=== PATIENT | female | born 1965 | race Caucasian/White ===

== ENCOUNTER 2016-12-29 06:39 | Day surgery (SDC) | payer OTHER ==
[2016-12-28 14:46] VITALS: BMI 30.2
[~2016-12-29] VITALS: Ht 160 cm; Wt 73.0 kg
[2016-12-29] VITALS (13 sets, daily range): BP systolic 105–166; BP diastolic 49–74; PULSE 59–85; RESP 13–18; Ht 160 cm; Wt 73.0 kg
[2016-12-29] MEDS ORDERED: SOD CHLORIDE 0.9% 1,000 ML IV SCH (08:30)
[2016-12-29] MEDS ORDERED: CEFAZOLIN 2 GM/50 ML (PMX) 50 ML IVPB ONE (08:30)
[2016-12-29 10:19] LABS: ADD SCAN DIFF NO
[2016-12-29 10:22] LABS: BASOPHILS % 0.3 % (0.0-2.0); EOSINOPHILS % 0.3 % (0.0-7.0); HEMATOCRIT 37.5 % (37.0-47.0); HEMOGLOBIN 12.9 g/dl (12.0-16.0); LYMPHOCYTES # 1.6 10^3/ul (0.8-2.9); LYMPHOCYTES % 28.2 % (15.0-51.0); MEAN CORPUSCULAR HEMOGLOBIN 29.5 pg (29.0-33.0); MEAN CORPUSCULAR HGB CONC 34.4 g/dl (32.0-37.0); MEAN CORPUSCULAR VOLUME 85.6 fl (82.0-101.0); MEAN PLATELET VOLUME 11.8 fl (7.4-10.4); MONOCYTE # 0.3 10^3/ul (0.3-0.9); MONOCYTES % 5.8 % (0.0-11.0); NEUTROPHIL # 3.8 10^3/ul (1.6-7.5); NEUTROPHILS % 65.2 % (39.0-77.0); PLATELET COUNT 169 10^3/UL (140-415); RED BLOOD COUNT 4.38 10^6/ul (4.20-5.40); RED CELL DISTRIBUTION WIDTH 12.7 % (11.5-14.5); WHITE BLOOD COUNT 5.8 10^3/ul (4.8-10.8)
[2016-12-29 10:35] LABS: PROTIME 13.2 Sec (12.2-14.2)
--- NOTE | 2016-12-29 10:35 | RADRPT ---
PROCEDURE: XR Chest. CLINICAL INDICATION: Preoperative for left breast biopsy. TECHNIQUE: Single frontal view. COMPARISON: None. FINDINGS: The lungs are clear. The heart size is normal. There is no pleural effusion or pneumothorax. A guide wire is present in the left breast laterally. IMPRESSION: 1. Guide wire in the left breast laterally. 2. Otherwise normal chest radiograph. RPTAT: QQ .Braydon Craig MD, MD Date Time Electronically viewed and signed by .Braydon Craig MD, MD on 12/29/2016 10:35 .R/
[2016-12-29 10:36] LABS: PARTIAL THROMBOPLASTIN TIME 27.4 Sec (25.0-35.0)
[2016-12-29 10:39] LABS: CREATININE 0.65 mg/dl (0.44-1.00)
[2016-12-29 10:40] LABS: CALCIUM 9.8 mg/dl (8.4-10.2)
[2016-12-29] MEDS ORDERED: PROPOFOL 20 ML ONE (11:04)
[2016-12-29] MEDS ORDERED: MIDAZOLAM 1 MG/ML 2 ML INJ ONE (11:05)
[2016-12-29] MEDS ORDERED: METOCLOPRAMIDE 10 MG INJ ONE (11:05)
[2016-12-29] MEDS ORDERED: FENTAnyl 50 MCG/ML VIAL ONE (11:05)
[2016-12-29] MEDS ORDERED: CEFAZOLIN 1 GM INJ ONE (11:17)
[2016-12-29] MEDS ORDERED: METOCLOPRAMIDE 10 MG INJ IV PRN (12:00)
[2016-12-29] MEDS ORDERED: OXYCODONE/ACETAMINOPHEN (5/325) TAB PO PRN ×2 (12:00)
[2016-12-29] MEDS ORDERED: DIPHENHYDRAMINE 50 MG INJ IV PRN (12:00)
[2016-12-29] MEDS ORDERED: MEPERIDINE 25 MG INJ IV PRN (12:00)
[2016-12-29] MEDS ORDERED: HYDROmorphONE (0.2 MG/ML) 10ML SYG IV PRN ×3 (12:00)
[2016-12-29] MEDS ORDERED: ONDANSETRON 4 MG INJ IV PRN (12:00)
[2016-12-29] MEDS ORDERED: EPHEDrine SULFATE 50 MG/5 ML SYG ONE (12:32)
--- NOTE | 2016-12-29 12:52 | OPR ---
DATE OF OPERATION: 12/29/2016 PREOPERATIVE DIAGNOSIS: Ductal carcinoma in situ, left breast. POSTOPERATIVE DIAGNOSIS: Ductal carcinoma in situ, left breast. OPERATION PERFORMED: Needle-directed left partial mastectomy. ANESTHESIA: General. ANESTHESIOLOGIST: Dr. Teresa SURGEON: Michael Reza MD TRADE RECRUITER: Bridger Venegas MD INDICATIONS FOR PROCEDURE: The patient is a 51-year-old female who presented with a suspicious lesi on in her left breast. A stereotactic biopsy was performed and it was nondiagnostic. The radiologi st recommended needle-directed excisional biopsy. The patient was counseled as to the risks versus benefits. She consented and was scheduled for surgery. DESCRIPTION OF PROCEDURE: On the day of surgery the patient was brought to [facility], where she underwent localization of the lesion performed by attending radiologist, Dr. Jenny Craig. Subsequently, she was brought to the operating theater and placed under gener al anesthesia. The left breast was prepped and draped in the usual sterile fashion. The localizati on needle was in the upper outer quadrant of the left breast. A curvilinear incision was made in th e region of the needle. The subcutaneous tissue was dissected with cautery. The skin edges were the n elevated with skin hooks. Wide circumferential dissection of the tissue associated with the wire took place, taking great care to ensure an adequate margin. The specimen was elevated, transected, oriented, and sent for radiographic confirmation of capture. Capture was confirmed. The specimen w as then sent for permanent pathologic analysis. The wound was irrigated. Minimal bleeding was cont rolled with cautery. The skin was then reapproximated with a 4-0 Vicryl suture in subcuticular fash ion, and benzoin and Steri-Strips were applied. The patient tolerated the procedure well. The manny mated blood loss was 10 mL. There were no complications. The patient was transported in stable con dition to the recovery room. Dictated By: MICHAEL REZA MD TL/NTS Conf#: [id number] DID#: [id number]
[2016-12-29] MEDS ORDERED: HYDROCODONE/APAP (7.5/325) TAB PO PRN (13:00)
== END 2016-12-29 15:00 | disposition home or self-care (01) ==
LOC: SDS 06:39
PROVIDERS: ATTEND Surgery Surgical Oncology
DX: D05.12 Intraductal carcinoma in situ of left breast (principal); I10 Essential (primary) hypertension
CPT/HCPCS: 19301; 71010; 80048; 84703; 85025; 85610; 85730; 93005; J0690; J2250; J2765; J3010; Z7512; Z7610

== ENCOUNTER 2017-01-20 10:41 | Day surgery (SDC) | payer OTHER ==
[2017-01-19 14:46] VITALS: BMI 28.2
[~2017-01-20] VITALS: Ht 162.6 cm; Wt 70.6 kg
[2017-01-20] VITALS (13 sets, daily range): BP systolic 110–178; BP diastolic 56–76; PULSE 56–85; RESP 9–20; Ht 162.6 cm; Wt 70.6 kg
[~2017-01-20 10:41] MED LIST: CEFAZOLIN 1 GM INJ ONE; CEFAZOLIN 2 GM/50 ML (PMX) 50 ML IVPB SCH; GLYCOPYRROLATE 0.4 MG INJ ONE; SOD CHLORIDE 0.9% 1,000 ML IV SCH
[2017-01-20] MEDS ORDERED: HYDROCODONE/APAP (7.5/325) TAB PO PRN (13:30)
[2017-01-20 13:40] LABS: ADD SCAN DIFF NO
[2017-01-20 13:44] LABS: BASOPHILS % 0.2 % (0.0-2.0); EOSINOPHILS % 0.5 % (0.0-7.0); HEMATOCRIT 37.3 % (37.0-47.0); HEMOGLOBIN 12.6 g/dl (12.0-16.0); LYMPHOCYTES # 1.8 10^3/ul (0.8-2.9); LYMPHOCYTES % 28.7 % (15.0-51.0); MEAN CORPUSCULAR HGB CONC 33.8 g/dl (32.0-37.0); MEAN CORPUSCULAR VOLUME 85.9 fl (82.0-101.0); MEAN PLATELET VOLUME 11.8 fl (7.4-10.4); MONOCYTE # 0.3 10^3/ul (0.3-0.9); MONOCYTES % 5.3 % (0.0-11.0); NEUTROPHIL # 4.1 10^3/ul (1.6-7.5); PLATELET COUNT 166 10^3/UL (140-415); RED BLOOD COUNT 4.34 10^6/ul (4.20-5.40); RED CELL DISTRIBUTION WIDTH 12.4 % (11.5-14.5); WHITE BLOOD COUNT 6.3 10^3/ul (4.8-10.8)
[2017-01-20 13:52] LABS: POTASSIUM 3.6 mmol/L (3.5-5.1)
[2017-01-20 13:53] LABS: PROTIME 13.2 Sec (12.2-14.2)
[2017-01-20 13:55] LABS: CALCIUM 9.8 mg/dl (8.4-10.2); CREATININE 0.75 mg/dl (0.44-1.00)
[2017-01-20] MEDS ORDERED: LIDOCAINE 2% (SDV) 5 ML INJ ONE (14:12)
[2017-01-20] MEDS ORDERED: PROPOFOL 20 ML ONE (14:12)
[2017-01-20] MEDS ORDERED: ONDANSETRON 4 MG INJ ONE (14:13)
[2017-01-20] MEDS ORDERED: MIDAZOLAM 1 MG/ML 2 ML INJ ONE (14:13)
[2017-01-20] MEDS ORDERED: DEXAMETHASONE 4 MG/ML 1 ML INJ ONE (14:13)
[2017-01-20] MEDS ORDERED: ISOSULFAN BLUE 1% 5 ML INJ SC ONE (15:06)
[2017-01-20] MEDS ORDERED: LISI10TA2 PO (15:28)
[2017-01-20] MEDS: morphine (1 MG/ML) 10ML SYRINGE IV PRN ×2 (16:42→16:59)
--- NOTE | 2017-01-20 16:48 | OPR ---
DATE OF OPERATION: 01/20/2017 PREOPERATIVE DIAGNOSIS: Microinvasive cancer with extensive DCIS left breast and positive margins, need for reexcision partial mastectomy and sentinel lymph node biopsy. POSTOPERATIVE DIAGNOSIS: Microinvasive cancer with extensive DCIS left breast and positive margins, need for reexcision partial mastectomy and sentinel lymph node biopsy. OPERATION PERFORMED: Left reexcision partial mastectomy and sentinel lymph node biopsy. ANESTHESIA: General. ANESTHESIOLOGIST: EDITA Self SURGEON: Michael Reza MD QUALITY CONTROLLER: Dr. Valencia INDICATIONS FOR PROCEDURE: The patient is a 51-year-old female who underwent surveillance mammograp hy. She was found to have a very suspicious lesion in her left breast. Core biopsy revealed DCIS. She underwent complete excisional biopsy. The final pass revealed extensive DCIS with 2 areas of m icroinvasion, and the medial margin was involved in the DCIS. The patient was counseled as to the n eed for reexcision partial mastectomy and sentinel lymph node biopsy. She consented and was schedul ed for surgery. DESCRIPTION OF PROCEDURE: The patient was brought to the operating theater, placed under general an esthesia. The left breast and axillary regions were prepped and draped in usual sterile fashion. A pproximately 4 mL of 1% blue dye was then injected peritumorally. The breast was gently massaged fo r approximately 12 minutes. At that point, a 2 to 3 cm incision was made in the left axillary hairl ine. Subcutaneous tissue was dissected with cautery down through the clavipectoral fascia. A dye-s tained lymphatic was identified. It was traced towards a sentinel node. This node was elevated and resected using a LigaSure device and sent for intraoperative analysis which was negative for obviou s metastatic disease. Therefore, no further nodes were taken. The wound was irrigated, and minimal bleeding was controlled with cautery. The skin was then reapproximated with 4-0 Vicryl suture in s ubcuticular fashion. Attention was then directed to performing the reexcision partial mastectomy. Previous surgical inci natalia in the upper outer quadrant was reincised with 15 blade scalpel. Subcutaneous tissue was disse cted with cautery. The biopsy cavity was entered, and the skin edges were elevated with skin hooks. One hundred eighty degree resection of the anterior and medial margin then took place with cautery . Specimen was elevated, transected, oriented, and sent for permanent pathologic analysis. The wou nd was irrigated. Minimal bleeding was controlled with cautery. The skin was then reapproximated w ith 4-0 Vicryl suture in subcuticular fashion, and benzoin and Dermabond was applied to both incisio ns. The patient tolerated the procedure well. The estimated blood loss was 20 mL. There were no c omplications, and the patient was transported in stable condition to the recovery room where circumf erential compression dressing was applied. Dictated By: MICHAEL FORRESTER/NOEMY Conf#: [id number] DID#: [id number]
[2017-01-20] MEDS ORDERED: OXYCODONE/ACETAMINOPHEN (5/325) TAB PO PRN ×2 (17:00)
[2017-01-20] MEDS ORDERED: EPHEDrine SULFATE 50 MG/5 ML SYG IV PRN (17:00)
[2017-01-20] MEDS ORDERED: ONDANSETRON 4 MG INJ IV PRN (17:00)
[2017-01-20] MEDS ORDERED: METOCLOPRAMIDE 10 MG INJ IV PRN (17:00)
[2017-01-20] MEDS ORDERED: hydrALAzine 20 MG INJ IV PRN (17:00)
[2017-01-20] MEDS ORDERED: DIPHENHYDRAMINE 50 MG INJ IV PRN (17:00)
[2017-01-20] MEDS ORDERED: morphine (1 MG/ML) 10ML SYRINGE IV PRN ×2 (17:00)
[2017-01-20] MEDS ORDERED: MEPERIDINE 25 MG INJ IV PRN (17:00)
[2017-01-20] MEDS ORDERED: OXYCODONE/ACETAMINOPHEN (5/325) TAB PO ONE (18:00)
== END 2017-01-20 18:40 | disposition home or self-care (01) ==
LOC: SDS 10:41
PROVIDERS: ATTEND Surgery Surgical Oncology
DX: D05.12 Intraductal carcinoma in situ of left breast (principal); I10 Essential (primary) hypertension
CPT/HCPCS: 19301; 38500; 38792; 80048; 85025; 85610; 85730; 88307; 88331; J0690; J1100; J2250; J2270; J2405; J3010; Z7512; Z7610; 88342; Q9968

== ENCOUNTER 2017-02-17 08:42 | Day surgery (SDC) | payer OTHER ==
[2017-02-17] VITALS (8 sets, daily range): BP systolic 136–152; BP diastolic 53–66; PULSE 38–60; RESP 10–18
[~2017-02-17 08:42] MED LIST changes: -CEFAZOLIN 1 GM INJ ONE; -CEFAZOLIN 2 GM/50 ML (PMX) 50 ML IVPB SCH; -GLYCOPYRROLATE 0.4 MG INJ ONE; +LIDOCAINE 2% (SDV) 5 ML INJ ONE; +LISI10TA2 PO; -SOD CHLORIDE 0.9% 1,000 ML IV SCH
[2017-02-17] MEDS ORDERED: CEFAZOLIN 2 GM/50 ML (PMX) 50 ML IVPB ONE (10:00)
[2017-02-17] MEDS ORDERED: SOD CHLORIDE 0.9% 1,000 ML IV SCH (10:00)
[2017-02-17 10:20] LABS: ADD SCAN DIFF NO
[2017-02-17 10:22] LABS: BASOPHILS % 0.4 % (0.0-2.0); EOSINOPHILS # 0.1 10^3/ul (0.0-0.5); EOSINOPHILS % 1.1 % (0.0-7.0); HEMOGLOBIN 12.2 g/dl (12.0-16.0); LYMPHOCYTES # 1.8 10^3/ul (0.8-2.9); LYMPHOCYTES % 39.7 % (15.0-51.0); MEAN CORPUSCULAR HEMOGLOBIN 29.3 pg (29.0-33.0); MEAN CORPUSCULAR HGB CONC 33.9 g/dl (32.0-37.0); MEAN CORPUSCULAR VOLUME 86.3 fl (82.0-101.0); MONOCYTE # 0.4 10^3/ul (0.3-0.9); MONOCYTES % 7.6 % (0.0-11.0); NEUTROPHIL # 2.3 10^3/ul (1.6-7.5); PLATELET COUNT 172 10^3/UL (140-415); RED BLOOD COUNT 4.17 10^6/ul (4.20-5.40); RED CELL DISTRIBUTION WIDTH 12.9 % (11.5-14.5); WHITE BLOOD COUNT 4.6 10^3/ul (4.8-10.8)
[2017-02-17 10:38] LABS: ALBUMIN 4.4 g/dl (3.3-4.9)
[2017-02-17 10:41] LABS: ALBUMIN/GLOBULIN RATIO 1.33; BILIRUBIN,INDIRECT 0.5 mg/dl (0-1.1); BILIRUBIN,TOTAL 0.5 mg/dl (0.2-1.3); TOTAL PROTEIN 7.7 g/dl (6.1-8.1)
--- NOTE | 2017-02-17 10:43 | RADRPT ---
PROCEDURE: XR Chest. CLINICAL INDICATION: preop, breast ca TECHNIQUE: Single frontal view of the chest was obtained COMPARISON: None FINDINGS: The heart and mediastinum are within normal limits. There is a small right upper lobe calcified granuloma. The lungs are otherwise clear. There is no pleural effusion or pneumothorax. RPTAT: AA IMPRESSION: No acute disease. .Warren Claudio MD, MD Date Time Electronically viewed and signed by .Warren Claudio MD, on 02/17/2017 10:43 .S/
[2017-02-17 10:44] LABS: CALCIUM 9.4 mg/dl (8.4-10.2); CREATININE 0.7 mg/dl (0.44-1.00); POTASSIUM 3.8 mmol/L (3.5-5.1)
[2017-02-17 11:06] LABS: INR 0.99; PROTIME 13.1 Sec (12.2-14.2)
[2017-02-17 11:07] LABS: PARTIAL THROMBOPLASTIN TIME 32.6 Sec (25.0-35.0)
[2017-02-17] MEDS ORDERED: HYDROCODONE/APAP (7.5/325) TAB PO PRN (11:30)
[2017-02-17] MEDS ORDERED: PROPOFOL 20 ML ONE (12:16)
[2017-02-17] MEDS ORDERED: MIDAZOLAM 1 MG/ML 2 ML INJ ONE (12:16)
[2017-02-17] MEDS ORDERED: FENTAnyl 50 MCG/ML VIAL ONE (12:16)
[2017-02-17] MEDS ORDERED: DEXAMETHASONE 4 MG/ML 1 ML INJ ONE (12:31)
[2017-02-17] MEDS ORDERED: CEFAZOLIN 1 GM INJ ONE (12:31)
[2017-02-17] MEDS ORDERED: ONDANSETRON 4 MG INJ ONE (12:31)
[2017-02-17] MEDS ORDERED: FAMOTIDINE 20 MG INJ ONE (12:31)
[2017-02-17] MEDS ORDERED: ACETAMINOPHEN 1000MG/100ML IV 100 ML ONE (12:39)
[2017-02-17] MEDS ORDERED: DIPHENHYDRAMINE 50 MG INJ IV PRN (13:30)
[2017-02-17] MEDS ORDERED: MEPERIDINE 25 MG INJ IV PRN (13:30)
[2017-02-17] MEDS ORDERED: hydrALAzine 20 MG INJ IV PRN (13:30)
[2017-02-17] MEDS ORDERED: HYDROmorphONE (0.2 MG/ML) 10ML SYG IV PRN ×2 (13:30)
--- NOTE | 2017-02-17 14:04 | OPR ---
DATE OF OPERATION: 02/17/2017 PREOPERATIVE DIAGNOSIS: Left breast cancer, need for reexcision left partial mastectomy. POSTOPERATIVE DIAGNOSIS: Left breast cancer, need for reexcision left partial mastectomy. PROCEDURE: Left reexcision partial mastectomy. ANESTHESIA: General. ANESTHESIOLOGIST: Dr. Edwards SURGEON: Michael Reza MD TYPECASTING MACHINE OPERATOR: Dr. Valencia. INDICATIONS FOR PROCEDURE: The patient is a 51-year-old female who was previously treated for a lef t breast cancer. She had inadequate margin medially for ductal carcinoma in situ. She was counsele d as to the need for reexcision partial mastectomy. She consented and was scheduled for surgery. DESCRIPTION OF PROCEDURE: The patient was brought to the operating theater, placed under general an esthesia. The left breast was prepped and draped in the usual sterile fashion. The previous surgic al incision was in the upper outer quadrant and scar was reincised. Subcutaneous tissue was dissect ed with cautery. This seroma cavity was entered. Several milliliters of straw-colored seroma fluid were suction evacuated. Skin hooks were used to elevate the skin and 180 degree circumferential re section of the medial portion of the biopsy cavity then took place using cautery. Specimen was suero sected, oriented, and sent for permanent pathologic analysis. The wound was irrigated. Minimal ble eding was controlled with cautery. The skin was then reapproximated with a deep dermal layer of 4-0 Vicryl sutures in interrupted fashion, followed by final skin approximation with 5-0 PDS sutures in subcuticular fashion. Benzoin and Steri-Strips were then applied. The patient tolerated procedure well. Estimated blood loss was 10 mL. There were no complications and the patient was transported in stable condition to the recovery room. Dictated By: MICHAEL FORRESTER/NOEMY Conf#: [id number] DID#: [id number]
--- NOTE | 2017-02-17 16:42 | RADRPT ---
Vent Rate: 50 bpm RR Interval: 0 msec MD Interval: 128 msec QRS Duration: 90 msec QT Interval: 464 msec QTC Interval: 423 msec P-R-T [place]: 23 - 73 - 51 degrees Sinus bradycardia Otherwise normal ECG Electronically Signed By: Evens Eisenberg [id number]
== END 2017-02-17 15:04 | disposition home or self-care (01) ==
LOC: SDS 08:42
PROVIDERS: ATTEND Surgery Surgical Oncology
DX: C50.912 Malignant neoplasm of unspecified site of left female breast (principal); I10 Essential (primary) hypertension
CPT/HCPCS: 19301; 71010; 80053; 85025; 85610; 85730; 88307; 93005; J0690; J1100; J2250; J2405; J3010; Z7512; Z7610; J0131

== ENCOUNTER 2017-05-08 06:42 | Day surgery (SDC) | payer OTHER ==
[~2017-05-08] VITALS: Ht 157.5 cm; Wt 69.0 kg
[2017-05-08] VITALS (15 sets, daily range): BP systolic 104–135; BP diastolic 51–65; PULSE 44–72; RESP 15–30; Ht 157.5 cm; Wt 69.0 kg
[~2017-05-08 06:42] MED LIST changes: -LIDOCAINE 2% (SDV) 5 ML INJ ONE
[2017-05-08] MEDS ORDERED: CEFAZOLIN 1 GM INJ ONE (07:00)
[2017-05-08] MEDS ORDERED: DEXAMETHASONE 4 MG/ML 1 ML INJ ONE (07:00)
[2017-05-08] MEDS ORDERED: ONDANSETRON 4 MG INJ ONE (07:00)
[2017-05-08] MEDS ORDERED: SOD CHLORIDE 0.9% 1,000 ML IV SCH (08:00)
[2017-05-08] MEDS ORDERED: CEFAZOLIN 2 GM/50 ML (PMX) 50 ML IVPB SCH (08:00)
[2017-05-08] MEDS ORDERED: DIPHENHYDRAMINE 50 MG INJ IV PRN (09:00)
[2017-05-08] MEDS ORDERED: ONDANSETRON 4 MG INJ IV PRN (09:00)
[2017-05-08] MEDS ORDERED: OXYCODONE/ACETAMINOPHEN (5/325) TAB PO PRN ×2 (09:00)
[2017-05-08] MEDS ORDERED: MEPERIDINE 25 MG INJ IV PRN (09:00)
[2017-05-08] MEDS ORDERED: HYDROmorphONE (0.2 MG/ML) 10ML SYG IV PRN ×3 (09:00)
[2017-05-08] MEDS ORDERED: hydrALAzine 20 MG INJ IV PRN (09:00)
[2017-05-08] MEDS ORDERED: EPHEDrine SULFATE 50 MG/5 ML SYG IV PRN (09:00)
[2017-05-08] MEDS ORDERED: FENTAnyl 50 MCG/ML VIAL IV PRN ×3 (09:00)
[2017-05-08] MEDS ORDERED: LABETALOL HCL 20MG INJ IV PRN (09:00)
[2017-05-08] MEDS ORDERED: PROPOFOL 100 ML ONE (09:31)
[2017-05-08] MEDS ORDERED: ROCURONIUM 50 MG INJ ONE (09:32)
[2017-05-08] MEDS ORDERED: LIDOCAINE 2% (SDV) 5 ML INJ ONE (09:33)
--- NOTE | 2017-05-08 11:32 | OPR ---
DATE OF OPERATION: 05/08/2017 PREOPERATIVE DIAGNOSIS: Ductal carcinoma in situ, left breast. Need for left re-excision partial mastectomy. POSTOPERATIVE DIAGNOSIS: Ductal carcinoma in situ, left breast. Need for left re-excision partial mastectomy. OPERATION PERFORMED: Left re-excision partial mastectomy. ANESTHESIA: General. ANESTHESIOLOGIST: Dr. Obregon. SURGEON: Dr. Reza. MANAGER PAYMENT: None. INDICATIONS FOR PROCEDURE: Patient is a 51-year-old female, who underwent surveillance mammography and was found to have suspicious microcalcifications. Biopsy revealed DCIS. She subsequently had an open excisional biopsy which revealed DCIS with positive medial margin. She was counseled as to the need for re-excision partial mastectomy. She consented and was scheduled for surgery. OPERATIVE PROCEDURE: The patient was brought to the operating theater, placed under general anesthesia. The left breast was prepped and draped in the usual sterile fashion. Previous surgical incisional scar was reincised with a 15 blade scalpel. Subcutaneous tissue was dissected with cautery. The seroma cavity was entered. Several mL of straw-colored, seroma fluid were evacuated with suction. The skin hooks were utilized to elevate the skin edges and 180-degree resection of the medial margin with portions of the superior and inferior margin then took place. The specimen was removed, oriented, and sent for permanent pathologic analysis. The wound was irrigated. Minimal bleeding was controlled with cautery. The skin was then reapproximated with 4-0 Vicryl suture in subcuticular fashion. Benzoin and Steri-Strips were then applied. Patient tolerated procedure well. ESTIMATED BLOOD LOSS: Was 10 cc. COMPLICATIONS: There were no complications. DISPOSITION: The patient was transported in stable condition to the recovery room. Dictated By: Michael Reza MD /earl/jessica /Document#: [id number]
== END 2017-05-08 12:20 | disposition home or self-care (01) ==
LOC: SDS 06:42
PROVIDERS: ATTEND Surgery Surgical Oncology
DX: D05.12 Intraductal carcinoma in situ of left breast (principal); I10 Essential (primary) hypertension
CPT/HCPCS: 19301; 84703; 88307; J0690; J1100; J2405; J3010; Z7512; Z7610

== ENCOUNTER 2017-07-20 16:00 | Inpatient (IN) | payer OTHER ==
[~2017-07-20] VITALS: Ht 157.5 cm; Wt 67.6 kg
[2017-08-25] VITALS (19 sets, daily range): BP systolic 110–141; BP diastolic 56–69; PULSE 52–90; RESP 12–19; Ht 157.5 cm; Wt 67.6 kg
[2017-08-25] MEDS ORDERED: EPHEDrine SULFATE 50 MG/5 ML SYG ONE (07:00)
[2017-08-25] MEDS ORDERED: CEFAZOLIN 2 GM/50 ML (PMX) 50 ML IVPB ONE (12:30)
[2017-08-25] MEDS ORDERED: SOD CHLORIDE 0.9% 1,000 ML IV SCH (12:30)
[2017-08-25] MEDS ORDERED: PROCHLORPERAZINE 10 MG INJ IV PRN (13:30)
[2017-08-25] MEDS ORDERED: FENTAnyl 50 MCG/ML VIAL IV PRN (13:30)
[2017-08-25] MEDS ORDERED: MEPERIDINE 25 MG INJ IV PRN (13:30)
[2017-08-25] MEDS ORDERED: LABETALOL HCL 20MG INJ IV PRN (13:30)
[2017-08-25] MEDS ORDERED: hydrALAzine 20 MG INJ IV PRN (13:30)
[2017-08-25] MEDS ORDERED: HYDROmorphONE (0.2 MG/ML) 10ML SYG IV PRN (13:30)
[2017-08-25] MEDS ORDERED: DIPHENHYDRAMINE 50 MG INJ IV PRN (13:30)
[2017-08-25] MEDS ORDERED: ONDANSETRON 4 MG INJ IV PRN ×2 (13:30→15:30)
[2017-08-25] MEDS ORDERED: OXYCODONE/ACETAMINOPHEN (5/325) TAB PO PRN (13:30)
[2017-08-25] MEDS ORDERED: LIDOCAINE 2% (SDV) 5 ML INJ ONE ×2 (13:52→13:54)
[2017-08-25] MEDS ORDERED: MIDAZOLAM 1 MG/ML 2 ML INJ ONE (13:52)
[2017-08-25] MEDS ORDERED: PROPOFOL 20 ML ONE (13:54)
[2017-08-25] MEDS ORDERED: FENTAnyl 50 MCG/ML VIAL ONE (14:14)
[2017-08-25] MEDS ORDERED: DEXAMETHASONE 4 MG/ML 1 ML INJ ONE (14:22)
[2017-08-25] MEDS ORDERED: METOCLOPRAMIDE 10 MG INJ ONE (14:22)
[2017-08-25] MEDS ORDERED: ONDANSETRON 4 MG INJ ONE (14:22)
[2017-08-25] MEDS ORDERED: CEFAZOLIN 1 GM INJ ONE (14:22)
[2017-08-25] MEDS ORDERED: FAMOTIDINE 20 MG INJ ONE (14:22)
[2017-08-25] MEDS ORDERED: HYDROmorphONE 2 MG/ML SYG ONE (14:51)
[2017-08-25] MEDS ORDERED: PHENYLephrine (100 MCG/ML) 5ML SYG ONE (14:56)
--- NOTE | 2017-08-25 15:24 | SIPON ---
Date/Time of Note Date/Time of Note DATE: 08/25/17 TIME: 15:23 Operative Report Preoperative Diagnosis Invasive cancer left breast need for left mastectomy Postoperative Diagnosis Same Operation/Procedure Performed Left mastectomy Surgeon see signature line optometry assistant Dr Venegas Anesthesia: general Estimated blood loss: 10 - 50 ml's Transfusion Required none Specimen Left breast Grafts/Implants none Complications none CANDACE CARRILLO MD Aug 25, 2017 15:24
[2017-08-25] MEDS ORDERED: morphine 2 MG INJ IV PRN (15:30)
[2017-08-25] MEDS: ACETAMINOPHEN 1000MG/100ML IV 100 ML IVPB PRN (16:05)
[2017-08-25] MEDS: D5W-0.45 NACL + KCL 20 MEQ 1,000 ML IV SCH ×2 (18:37→23:30)
--- NOTE | 2017-08-25 19:16 | OPR ---
DATE OF OPERATION: 08/25/2017 PREOPERATIVE DIAGNOSIS: History of left breast cancer with inadequate margins after multiple reexci sions, need for left mastectomy. POSTOPERATIVE DIAGNOSIS: History of left breast cancer with inadequate margins after multiple reexc isions, need for left mastectomy. PROCEDURE: Left mastectomy. ANESTHESIA: General. ANESTHESIOLOGIST: Dr. Gonzalez. SURGEON: Michael Reza MD ASSISTANTS: Dr. Bridger Wilks and ____ INDICATIONS FOR PROCEDURE: The patient is an unfortunate 52-year-old female previously treated for invasive cancer of her left breast. She had multiple reexcisions and continued to demonstrate inade quate margins. She was counseled as to need for mastectomy. She consented and was scheduled for [facility]. DESCRIPTION OF PROCEDURE: The patient was brought to the operating theater, placed under general an esthesia. The left breast and axillary region were prepped and draped in usual sterile fashion. An elliptical incision was made around the nipple areolar complex including the previous surgical inci sional scar with 15 blade scalpel. Subcutaneous tissue was dissected with cautery. The skin edges were then elevated with [facility] clamps and skin flaps were created using cautery in sequential f ashion, first to the clavicle superiorly, then to the sternal border medially, then to the inframamm kyler fold inferiorly and laterally until the latissimus dorsi muscle was identified throughout its co urse. Mastectomy then took place from medial to lateral using cautery. At the border of the pector sonia major muscle, the pectoralis minor muscle was identified and the residual axillary tail of Jim anton was resected. Specimen was removed, oriented and sent for permanent pathologic analysis. The wo und was irrigated. Minimal bleeding was controlled with cautery. Two #10 flat Phoenix-Moctezuma drains were then brought through the left mid axillary line; one was cut to size and laid within the axill a, the other was cut to size and laid over the pectoralis major muscle. Both drains were secured in place with 2-0 nylon sutures in standard fashion. The skin was then reapproximated with a deep cindy mal layer of 4-0 Vicryl sutures in interrupted fashion, followed by final skin approximation with 5- 0 PDS in subcuticular fashion. Benzoin and Steri-Strips were then applied. Patient tolerated proce dure well. The estimated blood loss was approximately 50 mL. There were no complications, and the patient was transported in stable condition to the recovery room where circumferential compression d ressing was applied. Dictated By: MICHAEL REZA MD TL/NTS Conf#: [id number] DID#: [id number] CC: BRIDGER WILKS MD;*EndCC*
--- NOTE | 2017-08-26 02:14 | HP ---
DATE OF ADMISSION: 08/25/2017 CHIEF COMPLAINT AND HISTORY OF PRESENT ILLNESS: The patient is a 52-year-old female with a known h istory of left-sided breast cancer. The patient was apparently doing well and underwent screening m ammography and was found to have suspicious microcalcifications. The patient subsequently underwent biopsy which revealed ductal carcinoma in situ. The patient was brought into the hospital back in April 2017 and underwent open excisional biopsy which revealed DCIS with positive middle margin. The patient was sent home and was admitted today for a left mastectomy. Patient postoperatively has si gnificant chest wall pain and slight nausea, and patient is being admitted for further evaluation an d management. No reported shortness of breath, no fever or chills. The patient did not have any co ugh. No history of abdominal pain, no history of vomiting or diarrhea. No history of leg weakness or leg edema. No history of any acute joint pain. No recent skin rash. Other than the postoperati ve pain and mild nausea, the review of systems are unremarkable. PAST SURGICAL HISTORY: As stated above. ALLERGIES: NONE. SOCIAL HISTORY: No smoking, no alcohol. FAMILY HISTORY: Noncontributory. MEDICATIONS: Prior to admission, the patient apparently used to take lisinopril for hypertension. PHYSICAL EXAMINATION: GENERAL: The patient is conscious, awake, alert. VITAL SIGNS: Temperature 97.5, pulse 56, respirations 18, blood pressure 115/62, O2 saturation 100% on 2 liters nasal cannula. HEENT: Conjunctivae and lids normal. Oropharynx clear. NECK: Supple. No mass, no thyromegaly. CHEST: Fairly clear. CARDIOVASCULAR: S1, S2 normal. No murmur. ABDOMEN: Soft, nontender. Bowel sounds plus, no organomegaly. EXTREMITIES: No edema. Pedal pulses palpable. SKIN: Without rash. NEUROLOGIC: The patient is awake, alert, follows simple commands and moves all extremities. LABORATORY DATA: WBC 4.6, hemoglobin 12.2, platelets 172. Recent chemistry: Sodium 145, potassium 3.8, BUN 10, creatinine 0.7. Liver enzymes normal. IMPRESSION: 1. Left breast cancer status post mastectomy. 2. History of hypertension. PLAN: The patient is admitted on medical floor. Patient will be started on clear liquid diet which will be advanced as tolerated. The patient will continue IV Tylenol, Percocet and IV morphine for pain control, depending upon severity. Will use SCDs for DVT prophylaxis. Patient's blood pressure is controlled. Most of the readings have been below 120 postoperatively. We will hold off on anahi nopril and watch her. Will continue to follow from a medical standpoint. Dictated By: TORRES CONRAD MD AB/NTS Conf#: [id number] DID#: [id number] CC: CANDACE CARRILLO MD;*End*
[2017-08-26 02:15] VITALS: BP 96/55; RESP 18
[2017-08-26] MEDS: D5W-0.45 NACL + KCL 20 MEQ 1,000 ML IV SCH ×2 (03:01→11:03)
[2017-08-26 05:30] VITALS: BP 110/56; PULSE 62; RESP 18
[2017-08-26 07:50] VITALS: BP 109/58; RESP 18
--- NOTE | 2017-08-26 08:49 | PN ---
Date/Time of Note Date/Time of Note DATE: 08/26/17 TIME: 08:49 Assessment/Plan VTE Prophylaxis VTE Prophylaxis Intervention: other Lines/Catheters IV Catheter Type (from Nrsg): Peripheral IV Assessment/Plan Chief Complaint/Hosp Course 1. Left breast cancer status post mastectomy. 2. History of hypertension. Problems: Subjective 24 Hr Interval Summary Free Text/Dictation Patient doing well, has no complaints Exam/Review of Systems Vital Signs Vitals Vital Signs Date Time Temp Pulse Resp B/P Pulse Ox O2 Delivery O2 Flow Rate FiO2 08/26/17 07:50 98.5 46 18 109/58 98 08/26/17 05:30 Nasal Cannula 2.0 Intake and Output 08/25/17 08/25/17 08/26/17 15:00 23:00 07:00 Intake Total 1800 ml 1730 ml Output Total 10 ml 800 ml Balance 1790 ml 930 ml Exam Constitutional: well developed Head: atraumatic, normocephalic Neck: supple Respiratory: diminished breath sounds Cardiovascular: regular rate and rhythm Gastrointestinal: non-tender, soft Extremities: normal pulses Medications Medications Current Medications Ondansetron HCl 4 mg 4 mg Q6H PRN IV NAUSEA AND/OR VOMITING; Start 08/25/17 at 15:30 Potassium Chloride/Dextrose/ Sod Cl (D5-1/2ns + KCl 20 Meq) 1,000 ml @ 125 mls/ hr Q8H IV Last administered on 08/26/17 03:01; Admin Dose 125 MLS/HR; Start 08/25/17 at 15:30 Morphine Sulfate 2 mg 2 mg Q1H PRN IV PAIN Last administered on 08/25/17 20: 41; Admin Dose 2 MG; Start 08/25/17 at 15:30 Acetaminophen (Ofirmev 1000mg/ 100ml Iv) 100 ml @ 400 mls/hr Q6H PRN IVPB PAIN Last administered on 08/25/17 16:05; Admin Dose 400 MLS/HR; Start at 15:30 TIFFANY SCALES Aug 26, 2017 08:49
[2017-08-26] MEDS: ACETAMINOPHEN 1000MG/100ML IV 100 ML IVPB PRN (12:13)
--- NOTE | 2017-08-26 15:58 | PN ---
DATE: 08/26/2017 PROGRESS NOTE FOLLOWUP CHIEF COMPLAINT: Status post left modified radical mastectomy for cancer. SUBJECTIVE: No new event, no complaint. The pain is controlled. OBJECTIVE GENERAL: Awake, alert, oriented x3. VITAL SIGNS: Temperature maximum 98.9, heart rate 62, respirations 18, blood pressure 110/56, saturation 98% on 2 liters nasal cannula. LABORATORY DATA: No labs today. DRAINS: The two Phoenix-Moctezuma drains, one of them has drained 30 mL serosanguineous, the other one 20 mL serosanguineous since the time of operation from yesterday. Two layers of the dressing are intact; it is not too tight. The patient can move over the left side of her extremity. ASSESSMENT AND PLAN: A 52-year-old status post left modified radical mastectomy for completion of the operation for cancer of the left breast, postop day #1. The patient is stable, tolerating diet, tolerating pain with pain medication. Phoenix-Samson, 2 of them, draining serosanguineous fluid. The patient will be discharged today to be followed by Dr. Carrillo in the office. The family will call on Monday and make an appointment. The care of the Phoenix-Samson was taught to the patient's family by the nurse, and the patient' s daughter was advised to measure them every night and report the amount of drainage. Dictated By: DOMINGO WILKS MD PS/NTS Conf#: [id number] DID#: [id number] CC: CANDACE CARRILLO MD;*EndCC* MTDD
== END 2017-08-26 14:57 | disposition home or self-care (01) | DRG 583 ==
LOC: REC 08-25 11:26 → EDSTATUS 08-25 16:00 → MS1 08-25 17:32
PROVIDERS: ADMIT Surgery Surgical Oncology; ATTEND Surgery Surgical Oncology
PROC: 0HTU0ZZ Resection of Left Breast, Open Approach (ICD-10-PCS; principal; 2017-08-25 13:30)
DX: C50.912 Malignant neoplasm of unspecified site of left female breast (principal); I10 Essential (primary) hypertension
CPT/HCPCS: 88307; J0131; J0690; J1100; J1170; J2175; J2250; J2270; J2370; J2405; J2765; J3010; J3480; J7030